=== PATIENT | male | born 2005 | race Caucasian/White ===

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

== ENCOUNTER → 2025-01-15 | Outpatient (CLI) | payer MEDICAID, SELFPAY ==
--- NOTE | 2025-01-15 08:15 | XR_ITS ---
Examination: Retroperitoneal ultrasound, complete Technique: Multiple high resolution grayscale images of the retroperitoneum obtained, including kidneys and bladder. Exam date and time:January 15, 2025, 0933 hours INDICATIONS: Proteinuria on laboratory examination 2 months ago FINDINGS: Right kidney 13.8 cm cortex 2.0 cm Left kidney 12.3 cm cortex 3.2 cm No hydronephrosis or renal calculi Contracted urinary bladder, bladder prevoid volume 104 cc No prostatomegaly, 11 cc volume no prostate nodules IMPRESSION: No hydronephrosis or renal calculi
== END | disposition home or self-care (01) ==
PROVIDERS: PCP Nurse Practitioner Family; Referring Provider Nurse Practitioner Family; Visit Provider Nurse Practitioner Family
DX: R80.9 Proteinuria, unspecified (principal)
CPT/HCPCS: 76770